=== PATIENT | female | born 1930 | race Hispanic/Latino ===

== ENCOUNTER 2017-04-22 11:40 | Emergency (ER) | payer MEDICARE ==
[2017-04-22 11:47] VITALS: BMI 29.2
[2017-04-22 11:58] LABS: BASO # 0.04 K/mm3 (0.0-2.0); BASO % 0.4 % (0.0-3.0); EOS # 0.4 (0.0-0.7); GRAN # 7.13 (1.4-6.5); GRAN % 70.1 % (50.0-68.0); HEMATOCRIT 31.3 % (36.0-48.0); LYMPH # 1.7 (1.2-3.4); LYMPH % 16.8 % (22.0-35.0); MEAN CELL VOLUME 76.2 fl (80.0-105.0); MEAN CORPUSCULAR HGB CONC 35.5 g/dl (31.0-37.0); MEAN PLATELET VOLUME 9.5 fl (7.0-11.0); MONO # 0.9 (0.1-0.6); MONO % 8.7 % (1.0-6.0); RED CELL DISTRIBUTION WIDTH 13.5 % (11.5-14.5); WHITE BLOOD COUNT 10.2 10^3/ul (4.5-11.0)
--- NOTE | 2017-04-22 12:02 | ED PDOC ---
Arrival/HPI - General Time Seen by Provider: 04/22/17 11:51 Historian: Family, EMS - History of Present Illness Narrative History of Present Illness (Text): 04/22/17 11:55 A 86 year old female, whose past medical history includes atrial fibrillation, diabetes, hypertension and dyslipidemia, was brought into the emergency department by EMS for unresponsiveness. History obtained from family and EMS. Daughter reports patient had a syncopal episode falling onto the couch with no obvious trauma or injuries at 10:55 this morning. Patient became unresponsive afterwards. Prior to event patient was in her normal state, alert and oriented times 3. As per director of vocational training report, patient was found unresponsive with flaccid paralysis in all four extremities. ROS limited due to acuity of condition. PMD: Dr. Locke Time/Duration: Other (10:55 this morning) Symptom Course: Unchanged Context: Home Past Medical History - Provider Review Nursing Documentation Reviewed: Yes - Cardiac Hx Hypertension: Yes - Endocrine/Metabolic Hx Diabetes Mellitus Type 2: Yes Hx Hypothyroidism: Yes - Musculoskeletal/Rheumatological Hx Falls: Yes - Psychiatric Hx Anxiety: Yes Hx Substance Use: No Family/Social History - Physician Review Nursing Documentation Reviewed: Yes Family/Social History: No Known Family HX Smoking Status: Never Smoked Hx Alcohol Use: No Hx Substance Use: No Allergies/Home Meds Allergies/Adverse Reactions: Allergies No Known Allergies Allergy (Verified 07/28/15 19:48) Home Medications: Home Meds Medication Instructions Recorded Confirmed Aliskiren/Hydrochlorothiazide 1 tab PO DAILY 04/22/17 04/22/17 [Tekturna Hct 300-25 mg Tablet] Cholecalciferol (Vitamin D3) 1 tab PO DAILY 04/22/17 04/22/17 [Vitamin D-400] Dabigatran [Pradaxa] 1 cap PO BID 04/22/17 04/22/17 Insulin Detemir [Levemir] 20 unit SC HS 04/22/17 04/22/17 LORazepam [Ativan] 1 tab PO DAILY 04/22/17 04/22/17 Labetalol [Trandate] 1 tab PO BID 04/22/17 04/22/17 Levothyroxine [Synthroid] 1 tab PO DAILY 04/22/17 04/22/17 Lisinopril [Zestril] 1 tab PO DAILY 04/22/17 04/22/17 amLODIPine [Norvasc] 1 tab PO DAILY 04/22/17 04/22/17 Review of Systems - Review of Systems Systems not reviewed;Unavailable: Acuity of Condition Physical Exam - Physical Exam Narrative Physical Exam (Text): - Review of Systems Limited due to acuity of condition Physical exam - Systems Exam Head: Present: Atraumatic, Normocephalic Pupils: Present: Pupils non-reactive to light No: Pupillary reflex Conjunctiva: Present: Normal Mouth: Present: Moist Mucous Membranes. No: Gag reflex Neck: Present: Normal Range of Motion. No: MIDLINE TENDERNESS, Paraspinal Tenderness Respiratory/Chest: Present: Poor Air Exchange. No: Accessory Muscle Use, Tachypneic Cardiovascular: Present: Regular Rate and Rhythm Abdomen: Present: Normal Bowel Sounds. No: Tenderness, Distention, Peritoneal Signs, Rebound, Guarding Back: No: Midline Tenderness, Paraspinal Tenderness Upper Extremity: No: Cyanosis, Edema Lower Extremity: No: Edema Neurological: Present: Non-responsive to painful or tactile stimuli, Positive Babinski sign bilaterally. Skin: Present: Warm, Dry, Normal Color. No: Rashes Vital Signs Reviewed: Yes Vital Signs Pulse Resp BP Pulse Ox 04/22/17 14:53 56 L 16 91/46 L 93 L 04/22/17 13:11 99 H 18 211/82 H 100 04/22/17 12:30 60 25 H 248/100 H 100 04/22/17 12:00 62 26 H 246/110 H 100 Blood Pressure: Hypertensive Pulse: Regular Respiratory Rate: Tachypneic Mental Status: Positive for: Comatose Finger Stick Blood Glucose: 260 Medical Decision Making ED Course and Treatment: 04/22/17 11:55 Impression: A 86 year old female brought in unresponsive. On exam, non-responsive to painful or tactile stimuli, positive Babinski sign bilaterally. pupil non- reactive to light on L. Hx of surgery on R. No gag reflex. Differential Diagnosis included but are not limited to: hemorrhagic vs ischemic cva Plan: -- Head CT -- Chest xray -- EKG -- Labs -- Urinalysis -- Reassess and disposition Progress Notes: Code stroke called at 11:45 EKG shows atrial fibrillation at [address]-segment depressions, no ST-segment elevations. Interpreted by me. 04/22/17 12:14 Large bleed noted on CT. Patient is 86 years old on Pradaxa, no gag reflex, pupil non-reactive to light. Case discussed with Dr. Nam from neurosurgery in detail, he states he looked at CT as well, states patient's condition is not compatible with life and advised against any surgical or medical interventions. Family made aware of findings. Family reports patient had advanced directives and her wishes were for no invasive procedures or interventions and she did not wish to be intubated. Report Date : 04/22/2017 12:27:26 PROCEDURE: CT HEAD WITHOUT CONTRAST. Dictator : Jacky Branch MD IMPRESSION: There is a large left cerebral hemorrhage measuring 5.3 x 9.3 cm. There is surrounding edema and severe mass effect with 22 mm of midline shift to the right. There is also obliteration of the basal cisterns 04/22/17 12:35 Cased discussed in detail with Dr. Locke, accepted admission to his service. Aware of decision for no interventions. Attempted to contact Clemencia Subramaniandaljit from palliative care and was told she was away on vacation. Report Date : 04/22/2017 13:01:51 Procedure: Chest xray Dictator : Jacky Branch MD IMPRESSION: No active disease. 04/22/17 13:04 Family was once again made aware of patients condition. They confirmed they do not want any life saving measures at this time and prefer comfort care. 04/22/17 13:36 April Schneider came to set up hospice care pt will be in the ER until hospice daycare assistant evaluates 04/22/17 15:25 spoke with Fanny Schneider again, states to admit to hospital (not hospice) 04/22/17 15:41 came to pt's bedside pt is not breathing no heart sounds on auscultation and no pulse no gag reflex, pupil non-reactive to light time of 15:41 - Critical Care Critical Care Minutes: 30 minutes - Lab Interpretations Lab Results: 04/22/17 11:54 04/22/17 11:54 Lab Results 04/22/17 11:54: Sodium 129 L, Potassium 3.5 L, Chloride 92 L, Carbon Dioxide 23 , Anion Gap 18, BUN 42 H, Creatinine 2.5 H, Est GFR ( Amer) 22, Est GFR ( Non-Af Amer) 18, Random Glucose 260 H, Calcium 9.7, Total Bilirubin 0.5, AST 24 , ALT 31, Alkaline Phosphatase 136 H, Troponin I < 0.01, Total Protein 7.3, Albumin 4.1, Globulin 3.3, Albumin/Globulin Ratio 1.2, Triglycerides 174 H, Cholesterol 145, LDL Cholesterol Direct 81, HDL Cholesterol 31 04/22/17 11:54: PT 30.8 H*, INR 2.85 H, APTT 62.9 H 04/22/17 11:54: WBC 10.2 D, RBC 4.11, Hgb 11.1 L, Hct 31.3 L, MCV 76.2 L, MCH 27.0, MCHC 35.5, RDW 13.5, Plt Count 297, MPV 9.5, Gran % 70.1 H, Lymph % (Auto ) 16.8 L, Teller % (Auto) 8.7 H, Eos % (Auto) 4.0, Baso % (Auto) 0.4, Gran # 7.13 H, Lymph # 1.7, Teller # 0.9 H, Eos # 0.4, Baso # 0.04 04/22/17 11:40: Blood Type O NEGATIVE, Antibody Screen Negative, BBK History Checked No verified bt I have reviewed the lab results: Yes - RAD Interpretation Radiology Orders: 04/22/17 11:47 HEAD W/O (CODE STROKE) [CT] Stat 04/22/17 11:52 CHEST PORTABLE [RAD] Stat - Medication Orders Current Medication Orders: Morphine Sulfate (Morphine) 4 mg IVP Q4H EDYTA Discontinued Medications Propofol (Diprivan) Confirm Administered Dose 1,000 mg in 100 mls @ ud .ROUTE .STK-MED ONE Stop: 04/22/17 12:06 Last Admin: 04/22/17 14:16 Dose: Morphine Sulfate (Morphine) 4 mg IVP STAT STA Stop: 04/22/17 13:03 Last Admin: 04/22/17 13:39 Dose: 4 mg Rocuronium [place] (Zemuron) Confirm Administered Dose 50 mg .ROUTE .STK-MED ONE Stop: 04/22/17 12:07 Last Admin: 04/22/17 14:16 Dose: NIHSS Scale ([place]) Time Performed: 11:42 - How Severe is the Stoke Baseline Level of Consciousness: 3=Unresponsive LOC to Questions: 2=Neither correct LOC to commands: 2=Neither correct Best Gaze: 0=Normal Visual: 0=No visual loss Facial: 3=Complete unilateral paralysis Motor Arm - Left: 4=No movement Motor Arm - Right: 4=No movement Motor Leg - Left: 4=No movement Motor Leg - Right: 4=No movement Limb Ataxia: 2=Present both Sensory: 2=Severe to total loss Best Language: 3=Mute Dysarthia: 2=Severe, near unintelligible or worse Extinction & Inattention (Neglect): 2=Profound neglect(does not recognize own hand or orients to one side) Score: 37 Risk Level: Severe Stroke Risk rTPA Inclusion/Exclusion - Refusal of Treatment Patient Refused Treatment: No - Inclusion Criteria for Altepase Patient is 18 years or Older: Yes The Clinical Diagnosis of Ischemic Stroke That is Causing a Potentially Disabling Neurological Deficit: No Time of Onset is Well Established to be Less Than 270 Minute Before Treatment Would Begin: Yes Risk/Benefit Discussed With Patient/Family Member Present: No - Scribe Statement The provider has reviewed the documentation as recorded by the Abraham Caldwell Provider Scribe Attestation: All medical record entries made by the Avniibmelvin were at my direction and personally dictated by me. I have reviewed the chart and agree that the record accurately reflects my personal performance of the history, physical exam, medical decision making, and the department course for this patient. I have also personally directed, reviewed, and agree with the discharge instructions and disposition. Disposition/Present on Arrival - Present on Arrival Any Indicators Present on Arrival: No History of DVT/PE: No History of Uncontrolled Diabetes: No Urinary Catheter: No History Surgical Site Infection Following: None - Disposition Have Diagnosis and Disposition been Completed?: Yes Diagnosis: Hemorrhagic stroke Disposition: HOSPITALIZED Disposition Time: 13:00 Patient Plan: Admission Patient Problems: Current Active Problems Problem Status Onset Hemorrhagic stroke Acute Condition:
[2017-04-22] MEDS ORDERED: Propofol 10 mg/ml 0 MG/0 ML VIAL ONE (12:05)
[2017-04-22] MEDS ORDERED: Rocuronium 10 mg/ml (5 ml) ONE (12:06)
[2017-04-22 12:08] LABS: ALB/GLOB RATIO 1.2 (1.1-1.8); ALKALINE PHOSPHATASE 136 U/L (38-126); ALT/SGPT 31 U/L (7-56); AST/SGOT 24 U/L (14-36); BILIRUBIN,TOTAL 0.5 mg/dL (0.2-1.3); BLOOD UREA NITROGEN 42 mg/dL (7-21); CALCIUM 9.7 mg/dL (8.4-10.5); CARBON DIOXIDE 23 mmol/L (21-33); CHLORIDE 92 mmol/L (98-107); CHOLESTEROL 145 mg/dL (130-200); GFR AFRICAN-AMERICAN 22; GLUCOSE,RANDOM 260 mg/dL (70-110); POTASSIUM 3.5 mmol/L (3.6-5.0); SODIUM 129 mmol/L (132-148); TOTAL PROTEIN 7.3 g/dL (5.8-8.3)
[2017-04-22 12:10] LABS: INR 2.85 (0.93-1.08); PARTIAL THROMBOPLASTIN TIME 62.9 Seconds (23.7-30.8)
[2017-04-22 12:29] LABS: TROPONIN I < 0.01 ng/mL
--- NOTE | 2017-04-22 12:29 | CT ---
PROCEDURE: CT HEAD WITHOUT CONTRAST. HISTORY: CODE STROKE COMPARISON: None available. TECHNIQUE: Axial computed tomography images were obtained through the head/brain without intravenous contrast. Radiation dose: Total exam DLP = 725 mGy-cm. This CT exam was performed using one or more of the following dose reduction techniques: Automated exposure control, adjustment of the mA and/or kV according to patient size, and/or use of iterative reconstruction technique. FINDINGS: HEMORRHAGE: There is a large left cerebral hemorrhage measuring 5.3 x 9.3 cm. There is surrounding edema and severe mass effect with 22 mm of midline shift to the right. There is also obliteration of the basal cisterns BRAIN: No mass effect or edema. No atrophy or chronic microvascular ischemic changes. VENTRICLES: Unremarkable. No hydrocephalus. CALVARIUM: Unremarkable. PARANASAL SINUSES: Unremarkable as visualized. No significant inflammatory changes. MASTOID AIR CELLS: Unremarkable as visualized. No inflammatory changes. OTHER FINDINGS: Dr. Roche was called at 12:15 p.m. IMPRESSION: There is a large left cerebral hemorrhage measuring 5.3 x 9.3 cm. There is surrounding edema and severe mass effect with 22 mm of midline shift to the right. There is also obliteration of the basal cisterns
[2017-04-22] MEDS ORDERED: Morphine 4 mg/ml ISec IVP STA (13:02)
--- NOTE | 2017-04-22 13:03 | RAD ---
HISTORY: AMS COMPARISON: No prior. FINDINGS: LUNGS: No active pulmonary disease. PLEURA: No significant pleural effusion identified, no pneumothorax apparent. CARDIOVASCULAR: Mild cardiomegaly OSSEOUS STRUCTURES: No significant abnormalities. VISUALIZED UPPER ABDOMEN: Normal. OTHER FINDINGS: None. IMPRESSION: No active disease.
[2017-04-22] MEDS ORDERED: Morphine 4 mg/ml ISec IVP SCH (13:15)
[2017-04-22 15:07] VITALS: BP 91/46; PULSE 56; O2SAT 93
--- NOTE | 2017-04-22 16:15 | CARD ---
APPROVED REPORT EKG Measurement Heart [id number] <Conclusion> Atrial fibrillation Right bundle branch block Septal infarct, age undetermined Abnormal ECG
[2017-04-22 16:27] VITALS: RESP 18
[2017-04-22] MEDS ORDERED: Pneumococcal 23-Valent Vaccine IM ONE (16:28)
--- NOTE | 2017-04-23 08:16 | CON ---
I was contacted by Dr. Roche of the emergency room, about an 86-year-old lady that came in as a "stroke," minimally responsive. CT showed a massive hemorrhage occupying the entire left hemisphere with significant midline shift. Brain stem compression essentially herniation. I indicated that unfortunately this is not a salvage of all situation, the appearance of this CAT scan is basically incompatible with life, and I would certainly only recommend supportive care. Felix Nam MD
== END 2017-04-22 17:40 | disposition short-term general hospital (02) ==
LOC: ED 11:40 → ERH 12:35 → UNDOADMIN 12:35 → ED 17:40
DX: I61.9 Nontraumatic intracerebral hemorrhage, unspecified (principal); I10 Essential (primary) hypertension; I48.91 Unspecified atrial fibrillation; E11.9 Type 2 diabetes mellitus without complications; E78.5 Hyperlipidemia, unspecified
CPT/HCPCS: 70450; 71010; 80053; 80061; 83036; 84484; 85025; 85610; 85730; 86850; 86900; 93005; 96374; 99285; J2270